=== PATIENT | male | born 1990 | race Caucasian/White ===

== ENCOUNTER 2021-04-07 12:16 | Emergency (ER) | payer BC, SELFPAY ==
--- NOTE | ~2021-04-07 | US_ITS ---
US abdomen limited DATE: 04/07/2021 13:55 INDICATION: Right upper quadrant abdominal pain for 3 days. Nausea. TECHNIQUE: Real-time imaging of liver, pancreas, gallbladder areas COMPARISON: None FINDINGS: The patient reportedly ate at 1130 hours, 2 hours prior to the procedure. The gallbladder is well-distended. Gallbladder wall thickness is within normal limits. No gallstones or abnormal pericholecystic fluid collection. Negative sonographic Helm's sign. No hepatic space-occupying mass lesion. Normal hepatopedal portal venous flow direction. The common bile duct measures 3.6 mm, normal. The pancreas is not well demonstrated due to interference from overlying bowel gas. IMPRESSION: Limited evaluation of pancreas due to interference from overlying bowel gas; otherwise un remarkable examination Reviewed, dictated and finalized at [facility]. Reviewed, dictated and finalized at [facility]. [facility] SPECIALIST IMPRESSION: Limited evaluation of pancreas due to interference from overlying b owel gas; otherwise unremarkable examination
--- NOTE | ~2021-04-07 | CT_ITS ---
EXAMINATION: CT abdomen pelvis w con INDICATION: Right upper quadrant pain TECHNIQUE: Computed tomographic images of the abdomen and pelvis were obtained after the administrati on of 100 cc of Omnipaque 350 intravenous contrast. The dose-length product (DLP) was 711.27 mGy-cm. Automated exposure control and iterative reconstruction technique were employed. COMPARISON: None available FINDINGS: The lung bases are clear. The heart size is normal. Left gynecomastia is noted. The liver, spleen, pancreas, gallbladder,, and adrenal glands are normal. The kidneys are unremarkable. No patho logically enlarged abdominal or pelvic lymph nodes are identified. There is no free intraperitoneal g as or evidence of bowel obstruction. A circumaortic left renal vein is noted. The appendix is normal. The visualized osseous structures are unremarkable. IMPRESSION: 1. No CT correlate for the patient's symptoms. Reviewed, dictated and finalized at [facility]. [employer] SAFETY DIRECTOR
[2021-04-07 12:20] VITALS: BP 142/78; PULSE 72; RESP 18; TEMP 37.1; O2SAT 100
--- NOTE | 2021-04-07 12:52 | ED.ABDPAIN ---
HPI - Abdominal Pain General Chief Complaint: Abdominal Pain Stated Complaint: right sided pain Time Seen by Provider: 04/07/21 12:52 Source: patient Mode of arrival: ambulatory Limitations: no limitations History of Present Illness HPI narrative: Pt is a 31 yo male with a history of alcohol induced hepatitis, methamphetamine use presenting for evaluation of abdominal pain and stool changes. Pt reports color change in his stool, endorses it is pale in appearance. Pt reporting RUQ abdominal pain, dull, aching in nature. Reports fullness as well. States it is sharp and worsened with laying down. Pt denies nausea or vomiting. Reports abdominal fullness. Pt was told he has liver disease 2 years ago when he lived in [place], [place]. Pt reports sobriety for past 8 years. Related Data Allergies Allergy/AdvReac Type Severity Reaction Status Date / Time No Known Allergies Allergy Verified 04/07/21 14:08 Review of Systems Review of Systems: CONSTITUTIONAL: Denies fever, chills, or sweats. EYES: Denies visual changes, redness, or discharge. ENT: Denies rhinorrhea, congestion, sore throat, or otalgia. CARDIOVASCULAR: Denies chest pain, palpitations, or edema. RESPIRATORY: Denies cough or dyspnea. GASTROINTESTINAL: Reports positional RUQ abdominal pain, without nausea or vomiting GENITOURINARY: Denies dysuria or hematuria. SKIN: Denies rash or itching. MUSCULOSKELETAL: Denies back pain, joint pain, or myalgia. NEUROLOGIC: Denies headache, numbness, or weakness. [facility] Social History Social History (Updated 04/07/21 @ 13:12 by Trish Kevin MD) Smoking status: Never smoker Alcohol intake: former Substance use: former Substance use type: amphetamines Living arrangements: with family Gender identity (if verbalized by the patient): Male Exam Narrative: GENERAL: Awake, alert, conversant HEAD: Normocephalic, atraumatic. EYES: PERRLA and EOMI. ENT: Nares clear, no rhinorrhea or epistaxis. Mucous membranes moist. NECK: Supple. CHEST: No respiratory distress, breathing even and non labored HEART: Regular rate, sinus rhythm ABDOMEN:Non distended, tender in the RUQ, no guarding, no rebound EXTREMITIES: Normal range of motion. No edema. SKIN: Warm, dry, no rash. NEURO:No focal deficits. Alert and oriented x3 Course Vital Signs Vital signs: Vital Signs Temperature 37.1 C 04/07/21 12:20 Pulse Rate 72 04/07/21 12:20 Respiratory Rate 18 04/07/21 12:20 Blood Pressure 142/78 H 04/07/21 12:20 Pulse Oximetry 100 04/07/21 12:20 Temperature 37.1 C 04/07/21 12:20 Pulse Rate 55 L 04/07/21 14:09 Respiratory Rate 18 04/07/21 14:09 Blood Pressure 110/63 04/07/21 14:09 Pulse Oximetry 99 04/07/21 14:09 MDM - Abdominal Pain MDM Narrative Medical decision making narrative: Patient's abdomen is soft without significant pain or signs of surgical abdomen on serial exams. Lab and imaging evaluations are reviewed and patient is felt to be a reasonable candidate for outpatient management. Negative hepatitis panel. No evidence of mass, ascites. No evidence of acute cholecystitis. Patient without symptoms of urinary tract infection. He denies any dysuria, hematuria, hesitancy. In the setting of normal laboratory studies, normal imaging, urinalysis was initially lost, patient clinically does not have symptoms, we will not wait to obtain a second. Patient was instructed as to limitations of imaging and lab evaluation and encouraged to return to the emergency department or his primary physician for repeat exam in 12 hours if continued or worsening pain. Differential Diagnosis Differential diagnosis: Likely abdominal pain, calculus of kidney, constipation, diverticulitis, gastroenteritis and small bowel obstruction Lab Data Attestation: I reviewed the patient's lab results. Result diagrams: 04/07/21 13:20 04/07/21 13:20 Labs: Lab Results 04/07/21 04/07/21 04/07/21 Range/Units 13:2
[2021-04-07 13:39] LABS: Basophils Percent Auto 0.3 % (0.2-1.2); Eosinophils Absolute Auto 0.2 K/mm3 (0-0.3); Eosinophils Percent Auto 2.9 % (0-4.4); Hematocrit 44.4 % (42.0-52.0); Hemoglobin 15.7 g/dL (14.0-18.0); Immature Granulocyte Absolute 0.02 K/mm3 (0.00-0.031); Immature Granulocyte Percent A 0.3 % (0-0.5); Lymphocytes Absolute Auto 2.23 K/mm3 (0.9-3.2); Lymphocytes Percent Auto 38.6 % (18.3-44.2); Mean Corpuscular HGB Conc 35.4 g/dl (32-36); Mean Corpuscular Hemoglobin 30.5 pg (26-34); Mean Corpuscular Volume 86.2 fl (80-100); Monocytes Absolute Auto 0.4 K/mm3 (0.1-0.6); Monocytes Percent Auto 7.4 % (2.6-8.5); Neutrophils Absolute Auto 2.9 K/mm3 (1.3-6.7); Neutrophils Percent Auto 50.5 % (45.5-73.1); Platelet Count Result 240 k/mm3 (150-375); Red Blood Count 5.15 M/mm3 (4.6-6.20); Red Cell Distribution Width 12.7 % (11.5-14.5); White Blood Count 5.8 K/mm3 (4.5-10.0)
[2021-04-07 13:57] LABS: Alanine Aminotransferase 43 U/L (4-50); Albumin Level 4.5 g/dL (3.5-5.1); Alkaline Phosphatase 113 U/L (38-126); Anion Gap 5 mmol/L (8-16); Aspartate Amino Transferase 36 U/L (17-59); Bilirubin,Total 0.7 mg/dL (0.2-1.3); Blood Urea Nitrogen 11 mg/dL (9-20); Calcium 9.4 mg/dL (8.4-10.2); Carbon Dioxide 31 mmol/L (22-30); Chloride 103 mmol/L (98-107); Estimated CRCL calculation 113 ml/min; Estimated Glomerular Filt Rate > 60; Glucose 121 mg/dL (65-110); Lipase 49 U/L (23-300); Sodium 139 mmol/L (137-145)
[2021-04-07] MEDS: SODIUM CHLORIDE 0.9% IV 1,000 ML 999 ML IV CONT (14:04)
[2021-04-07] MEDS: ONDANSETRON INJ 4 MG/2 ML VIAL IV PUSH (14:05)
[2021-04-07] MEDS: MORPHINE SULFATE (*CRX) 4 MG/ML INJ IV PUSH (14:06)
[2021-04-07 14:09] VITALS: BP 110/63; PULSE 55; RESP 18; O2SAT 99
[2021-04-07] MEDS: Please add drug allergy info to patient profile. 1 EACH XX (14:11)
[2021-04-07 14:55] LABS: Hepatitis B Surface Antigen Negative (Negative)
[2021-04-07 15:01] LABS: HAV RESULT Negative (Negative); Hepatitis B Core IgM Result Negative (Negative)
[2021-04-07 15:13] LABS: Hepatitis C Virus Antibody Negative (Negative)
[2021-04-07 15:14] VITALS: BP 122/69; PULSE 68; RESP 18; O2SAT 99
[2021-04-07 16:53] LABS: Add Urine Microscopic? YES; Appearance Urine Clear (Clear); Bilirubin Urine Negative (Negative); Blood Urine Negative (Negative); Color Urine Yellow (Yellow); Glucose Urine UA Negative (Negative); Ketones Urine Negative (Negative); Leukocyte Esterase Ur Negative LEU/UL (Negative); Mucus Urine Rare /lpf; Nitrate Urine Negative (Negative); Protein Urine 1+ mg/dL (Negative); RBC Urine 0-2 /hpf (0-2); Specific Grav Ur 1.028 (1.001-1.035); Urobilinogen Urine Negative mg/dL (<2.0); WBC Urine 0-3 /hpf
== END 2021-04-07 15:13 | disposition home or self-care (01) ==
PROVIDERS: Emergency Provider Emergency Medicine
DX: K76.9 Liver disease, unspecified (principal)
CPT/HCPCS: 36415; 74177; 76705; 80053; 80074; 81001; 83690; 85025; 96361; 96374; 96375; 99284; J2270; J2405; J7030; Q9967

== ENCOUNTER 2023-07-14 13:22 | Emergency (ER) | payer SELFPAY ==
--- NOTE | ~2023-07-14 | XR_ITS ---
EXAMINATION: XR elbow LT min 3V DATE: 07/14/2023 14:39 INDICATION: Left elbow injury. TECHNIQUE: 4 views of left elbow were obtained. COMPARISON: None. FINDINGS: Bone alignment is normal. No fracture. Joint spaces are normal. No elbow joint effusion. IMPRESSION: 1. Normal left elbow. Reviewed, dictated and finalized at location [facility]. IMPRESSION: 1. Normal left elbow.
[2023-07-14 13:27] VITALS: BP 149/98; PULSE 82; RESP 16; TEMP 36.3; O2SAT 98
--- NOTE | 2023-07-14 15:56 | ED.UPPEXIN ---
HPI - Extremity Injury (Upper) General Chief Complaint: Extremity Injury, Upper Stated Complaint: LUE injury Time Seen by Provider: 07/14/23 15:56 Source: patient Mode of arrival: ambulatory Limitations: no limitations History of Present Illness HPI narrative: Patient is a 33 y/o male who presents to the ED with c/o L elbow/forearm pain. Patient reports he was attempting to lift a heavy cooler today with his arms when he felt and heard a pop in his left elbow/forearm. Complains of pain to his left elbow/proximal forearm since then. Has some limited range of motion. Denies numbness. Denies any other injuries. Related Data Allergies Allergy/AdvReac Type Severity Reaction Status Date / Time No Known Allergies Allergy Verified 04/14/21 14:14 Review of Systems Review of Systems: CONSTITUTIONAL: Denies fever, chills, or sweats. MUSCULOSKELETAL: See HPI NEUROLOGIC: Denies headache, dizziness, numbness, or weakness. All systems reviewed & are unremarkable except as noted in HPI and below PMFSH Past Medical History Medical History Altered bowel habits Contact dermatitis History of liver disease Methamphetamine abuse Surgical History Surgical History History of nasal surgery Social History Social History Smoking status: Never smoker Alcohol intake: former Substance use: former Substance use type: amphetamines Living arrangements: with family Gender identity (if verbalized by the patient): Male Exam Narrative: GENERAL: Well appearing, well-nourished, non-toxic, in no acute distress. HEAD: Normocephalic, atraumatic. RESPIRATORY: Airway patent, respirations nonlabored. CARDIOVASCULAR: Regular rate and rhythm without murmurs, rubs, or gallops. Radial pulses 2+ and easily palpable. MUSCULOSKELETAL: Moves all extremities. No gross deformities. Minimal limited range of motion of left shoulder flexion/abduction past 90?, though discomfort is reported in antecubital fossa with this ROM. No tenderness over left shoulder joint space. Biceps tendon is intact, nontender insertion sites. Tenderness to palpation proximal left forearm. No appreciable swelling. Sensation is intact. Equal train announcer strength bilaterally. No weakness. SKIN: Warm, dry, normal color. NEURO: A&O X3. Speech clear. PSYCHIATRIC: Appropriate mood and affect. Normal interaction. Course Vital Signs Vital signs: Vital Signs Temperature 97.3 F L 07/14/23 13:27 Pulse Rate 82 07/14/23 13:27 Respiratory Rate 16 07/14/23 13:27 Blood Pressure 149/98 H 07/14/23 13:27 Pulse Oximetry 98 07/14/23 13:27 Temperature 97.3 F L 07/14/23 13:27 Pulse Rate 82 07/14/23 13:27 Respiratory Rate 16 07/14/23 13:27 Blood Pressure 149/98 H 07/14/23 13:27 Pulse Oximetry 98 07/14/23 13:27 MDM - Extremity Injury (Upper) MDM Narrative Medical decision making narrative: Patient?s injury is consistent with musculoskeletal etiology. No signs of neurologic or vascular compromise on physical examination. Compartments are soft without signs of compartment syndrome. XR left elbow negative for acute findings. No elbow joint effusion. Patient does not have any tenderness on exam throughout left shoulder joint, no indication for further imaging. Pain is consistent with exam and injury. Discussed possibility of ligamentous injury, no obvious muscle deformity/tear. Patient is felt to be stable for discharge home and further outpatient management and treatment. Placed in Hayes bandage in the ED. Discussed RICE treatment. Discussed follow-up with orthopedics for further evaluation. He is in agreement this plan and feels comfortable w/ discharge home. Discharged in stable condition. Medical Records Attestation: I reviewed the patient's medical records. I
== END 2023-07-14 16:35 | disposition home or self-care (01) ==
LOC: ANHED 16:17
PROVIDERS: Emergency Provider Physician Assistant; PCP Nurse Practitioner Family
DX: S56.912A Strain of unspecified muscles, fascia and tendons at forearm level, left arm, initial encounter (principal); X50.0XXA Overexertion from strenuous movement or load, initial encounter
CPT/HCPCS: 73080; 99283